=== PATIENT | male | born 1980 | race Caucasian/White ===

== ENCOUNTER → 2020-05-24 | Outpatient (CLI) | payer BC ==
--- NOTE | 2020-05-24 17:07 | KCIC ---
3 view study of the left elbow Clinical indications: Left elbow pain status post fall from ladder 2 weeks ago. FINDINGS: No joint effusion is seen. No acute fracture or dislocation or lytic process is evident. No significant arthritic change is seen. IMPRESSION: No acute osseous abnormality. Electronically signed by: Jacinto Hill MD (05/24/2020 5:04 PM) [id number]
--- NOTE | 2020-05-24 17:11 | KCIC ---
Five view lumbar spine series: Clinical indications: Low back pain on the right side. Status post fall from ladder 2 weeks ago. Findings: No fracture of the transverse processes is seen.No compression fracture is evident.No spondylolisthesis is seen.No discitis or osteolytic process is seen.No radiolucent pars defect is seen.No significant facet arthropathy is seen.No significant degenerative endplate spurring is present. Impression: No significant osseous abnormality of the lumbar spine is seen. Electronically signed by: Jacinto Hill MD (05/24/2020 5:08 PM) [id number]
== END | disposition home or self-care (01) ==
LOC: KCIC 15:26
PROVIDERS: ATTEND Family Medicine
DX: M25.522 Pain in left elbow (principal); M54.5 Low back pain
CPT/HCPCS: 72110; 73080

== ENCOUNTER 2020-10-01 18:49 | Emergency (ER) | payer BC ==
[~2020-10-01] VITALS: Ht 177.8 cm; Wt 97.7 kg
[2020-10-01 18:49] VITALS: BP 134/86
--- NOTE | 2020-10-01 19:02 | ED.ADGEN ---
General Adult EDM: Chief Complaint: ALCOHOL INTOXICATION HPI: HPI: Patient is a 40 year old male brought in by EMS after friends say he went unconscious and stopped breathing. They initiated CPR. Patient had been drink ing heavily with friends starting about 1000, 8 and half hours prior to arrival. No meds given by EMS, patient had nasal trumpet placed and will wake up and is confused. Oriented x2. No signs of trauma. Patient has pacemaker in left chest. Review of Systems: Review of Systems: Unable to assess due to intoxication Allergies: Allergies: Allergies Coded Allergies Type Severity Reaction Last Updated Verified Unable to Assess 10/01/20 No Physical Exam: PE: Constitutional: Well developed, well nourished, no acute distress, non-toxic appearance. [] HENT: Normocephalic, atraumatic, bilateral external ears normal, oropharynx moist, no oral exudates, nose normal. [] Eyes: PERRLA, EOMI, conjunctiva normal, no discharge. [] Neck: Normal range of motion, no tenderness, supple, no stridor. [] Cardiovascular:Heart rate regular rhythm, no murmur [] Lungs & Thorax: Bilateral breath sounds clear to auscultation [] pacemaker in left chest wall Abdomen: Bowel sounds normal, soft, no tenderness, no masses, no pulsatile masses. [] Skin: Warm, dry, no erythema, no rash. [] Back: No tenderness, no CVA tenderness. [] Extremities: No tenderness, no cyanosis, no clubbing, ROM intact, no edema. [] Neurologic: Oriented x2, moving all extremities, no gross deficits. Psychologic: Not agitated or aggressive Current Patient Data: Labs: Laboratory Tests Test 10/01/20 18:50 White Blood Count 7.1 x10^3/uL (4.0-11.0) Red Blood Count 4.87 x10^6/uL (4.30-5.70) Hemoglobin 15.3 g/dL (13.0-17.5) Hematocrit 43.2 % (39.0-53.0) Mean Corpuscular Volume 89 fL (79-100) Mean Corpuscular Hemoglobin 31 pg (25-35) Mean Corpuscular Hemoglobin Concent 35 g/dL (31-37) Red Cell Distribution Width 12.7 % (11.5-14.5) Platelet Count 215 x10^3/uL (140-400) Neutrophils (%) (Auto) 49 % (31-73) Lymphocytes (%) (Auto) 42 % (24-48) Monocytes (%) (Auto) 6 % (0-9) Eosinophils (%) (Auto) 2 % (0-3) Basophils (%) (Auto) 1 % (0-3) Neutrophils # (Auto) 3.4 x10^3/uL (1.8-7.7) Lymphocytes # (Auto) 3.0 x10^3/uL (1.0-4.8) Monocytes # (Auto) 0.4 x10^3/uL (0.0-1.1) Eosinophils # (Auto) 0.1 x10^3/uL (0.0-0.7) Basophils # (Auto) 0.1 x10^3/uL (0.0-0.2) Sodium Level 144 mmol/L (136-145) Potassium Level 4.4 mmol/L (3.5-5.1) Chloride Level 107 mmol/L (98-107) Carbon Dioxide Level 27 mmol/L (21-32) Anion Gap 10 (6-14) Blood Urea Nitrogen 18 mg/dL (8-26) Creatinine 1.1 mg/dL (0.7-1.3) Estimated GFR (Cockcroft-Gault) 74.9 BUN/Creatinine Ratio 16 (6-20) Glucose Level 97 mg/dL (70-99) Lactic Acid Level 1.3 mmol/L (0.4-2.0) Calcium Level 8.4 mg/dL (8.5-10.1) L Magnesium Level 2.6 mg/dL (1.8-2.4) H Total Bilirubin 0.3 mg/dL (0.2-1.0) Aspartate Amino Transferase (AST) 19 U/L (15-37) Alanine Aminotransferase (ALT) 32 U/L (16-63) Alkaline Phosphatase 80 U/L (46-116) Troponin I Quantitative < 0.017 ng/mL (0.000-0.055) Total Protein 6.5 g/dL (6.4-8.2) Albumin 3.6 g/dL (3.4-5.0) Albumin/Globulin Ratio 1.2 (1.0-1.7) Ethyl Alcohol Level 244 mg/dL (0-10) H Laboratory Tests 10/01/20 18:50 Laboratory Tests 10/01/20 18:50 Vital Signs: Vital Signs Date Time Temp Pulse Resp B/P (MAP) Pulse Ox O2 Delivery O2 Flow Rate FiO2 10/01/20 18:49 98.0 108 12 134/86 (102) 97 Room Air 98.0 EKG: EKG: Normal sinus rhythm, heart rate 100, no visible pacer spikes, normal axis, no ST elevation or depression, no ectopy [] Heart Score: Risk Factors: Risk Factors: DM, Current or recent (<one month) smoker, HTN, HLP, family history of CAD, obesity. Risk Scores: Score 0 - 3: 2.5% MACE over next 6 weeks - Discharge Home Score 4 - 6: 20.3% MACE over next 6 weeks - Admit for Clinical Observation Score 7 - 10: 72.7% MACE over next 6 weeks - Early Invasive Strategies Radiology/Procedures: Radiology/Procedures: PROCEDURE: CHEST AP ONLY EXAM: CHEST AP ONLY INDICATION: Reason: apnea / Spl. Instructions: / History: . TECHNIQUE: Single view COMPARISON: 10/10/2008 chest x-ray FINDINGS: Left chest dual-chamber pacemaker redemonstrated. The heart size is normal. The great vessels appear unremarkable. There is no hilar or mediastinal mass. The lungs are hypoventilatory but show no focal infiltrates.. There is no pleural effusion or pneumothorax. There are no significant osseous abnormalities. IMPRESSION: Hypoventilatory chest showing no active cardiopulmonary disease. [] Course & Med Decision Making: Course & Med Decision Making Patient becoming more alert and per nursing report, I was attending to critical patients, the patient was alert and oriented, PAT consulted and patient able to answer all questions and wanting to leave without further medical treatment. According to report he was able to ambulate with a steady gait and [] Dragon Disclaimer: Dragon Disclaimer: This electronic medical record was generated, in whole or in part, using a voice recognition dictation system. Departure Departure Impression: Primary Impression: Alcohol intoxication Disposition: 07 AMA/ELOPED/LWBS Referrals: JUAN PAYNE MD (PCP) JOSEPH GEIGER MD Oct 01, 2020 19:01
[2020-10-01 19:07] LABS: BASO # 0.1 x10^3/uL (0.0-0.2); BASO % 1 % (0-3); EOS # 0.1 x10^3/uL (0.0-0.7); EOS % 2 % (0-3); HEMATOCRIT 43.2 % (39.0-53.0); HEMOGLOBIN 15.3 g/dL (13.0-17.5); LYMPH % 42 % (24-48); MEAN CORPUSCULAR HEMOGLOBIN 31 pg (25-35); MEAN CORPUSCULAR HGB CONC 35 g/dL (31-37); MEAN CORPUSCULAR VOLUME 89 fL (79-100); MONO # 0.4 x10^3/uL (0.0-1.1); MONO % 6 % (0-9); NEUT # 3.4 x10^3/uL (1.8-7.7); NEUT % 49 % (31-73); PLATELET COUNT 215 x10^3/uL (140-400); RED BLOOD COUNT 4.87 x10^6/uL (4.30-5.70); RED CELL DISTRIBUTION WIDTH 12.7 % (11.5-14.5); WHITE BLOOD COUNT 7.1 x10^3/uL (4.0-11.0)
--- NOTE | 2020-10-01 19:19 | RAD ---
EXAM: CHEST AP ONLY INDICATION: Reason: apnea / Spl. Instructions: / History: . TECHNIQUE: Single view COMPARISON: 10/10/2008 chest x-ray FINDINGS: Left chest dual-chamber pacemaker redemonstrated. The heart size is normal. The great vessels appear unremarkable. There is no hilar or mediastinal mass. The lungs are hypoventilatory but show no focal infiltrates.. There is no pleural effusion or pneumothorax. There are no significant osseous abnormalities. IMPRESSION: Hypoventilatory chest showing no active cardiopulmonary disease. Electronically signed by: Denise Brown MD (10/01/2020 7:16 PM) [facility] [place]
[2020-10-01 19:20] LABS: CALCIUM 8.4 mg/dL (8.5-10.1); CREATININE 1.1 mg/dL (0.7-1.3); GFR 74.9; POTASSIUM 4.4 mmol/L (3.5-5.1)
[2020-10-01 19:34] LABS: ALBUMIN 3.6 g/dL (3.4-5.0); ALBUMIN/GLOBULIN RATIO 1.2 (1.0-1.7); MAGNESIUM 2.6 mg/dL (1.8-2.4); TOTAL BILIRUBIN 0.3 mg/dL (0.2-1.0); TOTAL PROTEIN 6.5 g/dL (6.4-8.2)
[2020-10-05] MEDS ORDERED: OMEP20CA16 PO (13:46)
[2020-10-05] MEDS ORDERED: CYCL10TA2 PO (13:46)
[2020-10-05] MEDS ORDERED: ASPI-630 PO (13:46)
[2020-10-05] MEDS ORDERED: OXYC5CAP PO (13:46)
[2020-10-05] MEDS ORDERED: TAPE100T9 PO (13:46)
== END 2020-10-01 20:30 | disposition left against medical advice (07) ==
LOC: ER 18:49
DX: F10.229 Alcohol dependence with intoxication, unspecified (principal); R41.0 Disorientation, unspecified
CPT/HCPCS: 36415; 71045; 80053; 83605; 83735; 84484; 85025; 99284; G0480; 93005; 99285

== ENCOUNTER → 2020-10-05 | Outpatient (CLI) | payer BC ==
[2020-10-01 18:49] VITALS: BP 134/86
[~2020-10-05] MED LIST: ASPI-630 PO; CYCL10TA2 PO; IOHEXOL 240 MG/ML 50ML VIAL. PO ONE; IOHEXOL 300 MG/ML 100ML VIAL. IV ONE; OMEP20CA16 PO; OXYC5CAP PO; TAPE100T9 PO
--- NOTE | 2020-10-05 14:38 | KCIC ---
EXAM: Chest and abdomen CT with intravenous contrast. HISTORY: Pain. TECHNIQUE: Computed tomographic images of the chest and abdomen were obtained following the administration of intravenous contrast. Multiplanar reformatting was performed. *One or more of the following individualized dose reduction techniques were utilized for this examination: 1. Automated exposure control. 2. Adjustment of the mA and/or kV according to patient size. 3. Use of iterative reconstruction technique. COMPARISON: None. FINDINGS: The heart is normal in size. There is a left-sided cardiac pacemaker in expected position. The aorta is normal in caliber and demonstrates a standard branching pattern. There are nonspecific mediastinal and hilar lymph nodes. These are not pathologically enlarged. The thyroid is prominent in size. There is a 1.9 cm hypodense nodule within the inferior left thyroid lobe, best seen on sagittal images. There is no pneumothorax or pleural effusion. There is minimal biapical emphysema. There is minimal posterior dependent and basilar atelectasis. There is no infiltrate or suspicious pulmonary nodule. There is no suspicious osseous lesion. There is no fracture. No hepatic lesion is seen. The gallbladder, pancreas, spleen, adrenal glands and kidneys are unremarkable. The stomach and visualized loops of bowel are unremarkable. There is no mesenteric or retroperitoneal lymphadenopathy. There is no suspicious osseous lesion. IMPRESSION: 1. No convincing acute thoracic or abdominal finding. 2. Cardiac pacemaker in expected position. 3. Prominent thyroid and 1.9 cm nodule along the inferior left thyroid lobe. This can be better assessed with a thyroid sonogram. Electronically signed by: Tosha Lucio MD (10/05/2020 2:35 PM) [id number]
== END ==
LOC: KCIC CT 12:41
PROVIDERS: ATTEND Family Medicine
DX: E04.1 Nontoxic single thyroid nodule (principal); J43.9 Emphysema, unspecified; J98.11 Atelectasis; Z95.0 Presence of cardiac pacemaker
CPT/HCPCS: 71260; 74160; Q9967